=== PATIENT | female | born 1950 | race Caucasian/White ===

== ENCOUNTER 2024-05-19 16:53 | Emergency (ER) | payer OTHER, SELFPAY ==
[2024-05-19 16:57] VITALS: BP 165/100
--- NOTE | 2024-05-19 18:16 | EDRN ---
Patient came to [facility] c/o headache stating when she fell she hit the left side of her head. visible bump. patient encouraged to get ct head but patient refused at this time.
[2024-05-19] MEDS: TORADOL 30 MG IM (19:35)
--- NOTE | 2024-05-19 20:39 | ED.GENMED ---
History of Present Illness
General
Chief Complaint: Musculo-Skeletal Complaint
Source: patient
Exam Limitations: none
Time Seen by Provider: 05/19/24 18:36
Nursing documentation reviewed up to this point in time: agreed with
History of Present Illness
History of Present Illness:
74-year-old female slipping on ice injuring her left wrist. Had outpatient x-ray showing fracture was sent to the ER for assessment. Denies additional trauma no head trauma no loss of consciousness not on blood thinners.
Past History
Past History
ED Past Medical History: Psychiatric
Social History
Tobacco: Smoker
Personal:
Review of Systems
Review of Systems
Allergies reviewed?: Yes
All Other Systems: ROS reviewed and negative except as documented in HPI and ROS
Phy Exam
Physical Exam
Physical Exam:
GENERAL: Alert , in no apparent distress
EYE: pupils equal and reactive
NECK: Supple, no significant adenopathy.
ENT: o/p clr, mmm.
CARDIAC: Regular rate and rhythm .
LUNGS: Clear breath sounds bilaterally, no acute respiratory distress, no wheezes/rales/rhonchi
ABDOMEN: Soft, without focal tenderness, no r/g, no cvat
NEUROLOGICAL: Alert and oriented, no focal neuro deficits
SKIN: Warm and dry, skin intact.
MUSCULOSKELETAL: Deformed left wrist swelling tenderness palpation able to move all fingers normal pulses radial and ulnar normal cap refill distally no edema, well perfused.
PSYCH: Normal and appropriate interaction.
Course
Orders/Labs/Results
Orders:
Orders
05/19/24 19:27
Ketorolac [Toradol] 30 mg IM NOW STA
05/19/24 20:34
CR Wrist - Left Min 2 Views Urgent
Reason For Exam: wrist post reduction
Vital Signs
Initial and Last Documented VS:
Initial Vital Signs
Temp Pulse Resp BP Pulse Ox
98.3 F 97 16 165/100 98
05/19/24 16:57 05/19/24 16:57 05/19/24 16:57 05/19/24 16:57 05/19/24 16:57
Last Documented Vital Signs
Temp Pulse Resp BP Pulse Ox
98.3 F 97 16 165/100 98
05/19/24 16:57 05/19/24 16:57 05/19/24 16:57 05/19/24 16:57 05/19/24 16:57
Procedures
Splinting/Sling Placement
Left Wrist:
Procedure completed by: Myself
Pre-splint extermity exam: neurovascular intact
Type of splint: sugar-tong
Splint material: fiberglass
Splint checked by provider?: Yes
Type of sling: sling fitted
Normal distal neurovascular exam?: Yes
Joint/Fracture Reduction
Left Dorsal Wrist:
Indication for procedure:: Distal radius fracture
Procedure completed by: Myself
Consent form signed: No
If no, reason: Emergency procedure (Verbal consent obtained)
Joint reduced: no treatment at this time (Hematoma block was performed)
Anesthesia/sedation: 1% Lidocaine and Injection to joint space
Injury was: closed
Further treatement: needs further treatment
Post reduction exam: stable
Capillary Refill: normal
Normal distal neurovascular exam?: Yes
Peripheral Pulses: radial (left): 2+
MDM/Problems Addressed
MDM/Problems Addressed:
74-year-old female presenting to the emergency department today with concerns of left-sided wrist deformity after slipping on ice prior to arrival. But have a fracture on x-ray. Fracture to the distal radius hematoma block was performed and
reduction was attempted. Patient was splinted. Otherwise patient will follow-up with orthopedics return precautions given.
*Critical Care Note
Total Time (30-74mins, 75-104mins- exclusive of procedures): Not Applicable
ED Attending Note
-
Portions of this chart may have been created with voice recognition software.� Occasional wrong word or��sound alike� substitutions may have occurred due to the inherent limitations of voice recognition software.
Discharge Plan
Departure
Patient Disposition: Home (Routine Discharge)
Date of Disposition: 05/19/24
Time of Disposition: 21:44
Patient with high blood pressure during this ER visit?: No
Condition: Good
Covid-19: Not Applicable
Discharge Problem:
Fracture of wrist
Instructions: Wrist Fracture (DC)
Prescriptions:
No Action
alprazolam 0.25 MG tablet
0.25 mg PO Q6HPRN PRN (Reason: anxiety)
citalopram 10 MG tablet
10 mg PO DAILY
calcium carbonate-vitamin D3 [Oyster Shell Calcium-Vit D3] 500 MG tablet
1 tab PO DAILY
amoxicillin 500 MG capsule
500 mg PO TID Qty: 30 0RF
tramadol 50 MG tablet
50 mg PO Q6H PRN (Reason: pain) Qty: 20 0RF
ondansetron [Zofran ODT] 8 MG tablet,disintegrating
8 mg PO TID PRN (Reason: nausea/vomiting) Qty: 20 0RF
amoxicillin 500 MG capsule
500 mg PO TID Qty: 42 0RF
Referrals:
Jose Tavarez MD [Family Provider] -
Milton Stone MD [Active] - Follow up in 5-7 days
Activity Restrictions/Additional Instructions:
You came to the emergency department today with concerns of wrist injury. You were splinted. Please leave this in place until orthopedic follow-up. Return for any worsening, new or concerning symptoms.
Interventions
Interventions:
*Risk Screen - Suicide Last Done: 05/19/24 16:57
*General Assessment Last Done: 05/19/24 16:57
*Neglect/Abuse Screening Last Done: 05/19/24 16:57
*ED COVID-19 Vaccine History Last Done: 05/19/24 16:57
ED-Musculoskeletal Assessment Last Done: 05/19/24 19:47
Discharge Date and Time
Print Language: PORTUGUESE
[2024-05-19 22:04] VITALS: BP 155/94
== END 2024-05-19 22:05 | disposition home or self-care (01) ==
LOC: EMR 16:53
PROVIDERS: EMERGENCY PHYSICIAN Student in an Organized Health Care Education/Training Program; FAMILY PHYSICIAN Family Medicine
DX: S52.592A Other fractures of lower end of left radius, initial encounter for closed fracture (principal); S52.692A Other fracture of lower end of left ulna, initial encounter for closed fracture; W00.0XXA Fall on same level due to ice and snow, initial encounter; F17.200 Nicotine dependence, unspecified, uncomplicated
CPT/HCPCS: 25605; 99284; 96372; 73090; 73100; 73110

== ENCOUNTER → 2024-05-25 13:14 | Outpatient (REF) | payer OTHER, SELFPAY ==
[2024-05-25 14:45] LABS: % Basophils 0.7 % (0-2); % Eosinophils 2.3 % (0-6); % Immature Granulocytes 0.2 % (0-0.5); % Lymphocytes 31.7 % (20.5-51.1); % Monocytes 7.4 % (1.7-9.3); % Neutrophils 57.7 % (42.2-75.2); Absolute Basophils 0.1 10^3/uL (0-0.2); Absolute Eosinophils 0.2 10^3/uL (0-0.7); Absolute Lymphocytes 3.1 10^3/uL (1.2-3.4); Absolute Monocytes 0.7 10^3/uL (0.1-0.6); Absolute Neutrophils 5.7 10^3/uL (1.4-6.5); Hematocrit 41.5 % (37.0-47.0); Hemoglobin 13.8 g/dL (12.0-16.0); Mean Corp Hgb Conc. 33.3 g/dL (33.0-37.0); Mean Corpuscular Hgb 29.9 pg (27.0-31.0); Mean Corpuscular Volume 89.8 fL (81.0-99.0); Nucleated Red Blood Cells % 0 %; Platelet Count 301 10^3/uL (130-400); Red Blood Cell Count 4.62 10^6/uL (4.20-5.40); White Blood Cell Count 9.8 10^3/uL (4.8-10.8)
[2024-05-25 15:08] LABS: Blood Urea Nitrogen 12 mg/dl (7-17); Calcium 9.7 mg/dl (8.4-10.2); Carbon Dioxide 29 mmol/L (22-30); Chloride 99 mmol/L (98-107); Glucose 97 mg/dl (70-99); Sodium 137 mmol/L (135-145); eGFR > 60.00
== END ==
LOC: RCS 13:14
PROVIDERS: ATTENDING PHYSICIAN Orthopaedic Surgery; FAMILY PHYSICIAN Family Medicine
DX: S52.502A Unspecified fracture of the lower end of left radius, initial encounter for closed fracture (principal)
CPT/HCPCS: 36415; 80048; 85025; 93005

== ENCOUNTER 2024-06-29 11:53 | Outpatient (RCR) | payer OTHER, SELFPAY | END 2024-06-29 23:59 | disposition home or self-care (01) | LOC: ROT 11:53 | PROVIDERS: ATTENDING PHYSICIAN Orthopaedic Surgery; FAMILY PHYSICIAN Family Medicine | DX: Z47.89 Encounter for other orthopedic aftercare (principal); M25.532 Pain in left wrist; Z73.6 Limitation of activities due to disability; W00.0XXD Fall on same level due to ice and snow, subsequent encounter | CPT/HCPCS: 97010; 97022; 97110; 97140; 97166; 97535 ==

== ENCOUNTER 2024-07-08 11:32 | Outpatient (RCR) | payer OTHER, SELFPAY | END 2024-07-08 23:59 | disposition home or self-care (01) | LOC: ROT 11:32 | PROVIDERS: ATTENDING PHYSICIAN Orthopaedic Surgery; FAMILY PHYSICIAN Family Medicine | DX: Z47.89 Encounter for other orthopedic aftercare (principal); M25.532 Pain in left wrist; Z73.6 Limitation of activities due to disability; W00.0XXD Fall on same level due to ice and snow, subsequent encounter; S52.502D Unspecified fracture of the lower end of left radius, subsequent encounter for closed fracture with routine healing; S52.602D Unspecified fracture of lower end of left ulna, subsequent encounter for closed fracture with routine healing | CPT/HCPCS: 97022; 97110; 97140 ==

== ENCOUNTER → 2024-12-21 11:59 | Outpatient (REF) | payer OTHER, SELFPAY | LOC: HWRAD 11:59 | PROVIDERS: ATTENDING PHYSICIAN Family Medicine | DX: R10.31 Right lower quadrant pain (principal) | CPT/HCPCS: 73502 ==

== ENCOUNTER → 2025-01-04 12:25 | Outpatient (REF) | payer OTHER, SELFPAY | LOC: HWWDC 12:25 | PROVIDERS: ATTENDING PHYSICIAN Family Medicine | DX: M81.0 Age-related osteoporosis without current pathological fracture (principal); Z12.31 Encounter for screening mammogram for malignant neoplasm of breast | CPT/HCPCS: 77063; 77067; 77080 ==

== ENCOUNTER → 2025-01-17 08:58 | Outpatient (REF) | payer OTHER, SELFPAY | LOC: MRI 3T 08:58 | PROVIDERS: ATTENDING PHYSICIAN Physical Medicine & Rehabilitation Sports Medicine; FAMILY PHYSICIAN Family Medicine | DX: M25.551 Pain in right hip (principal) | CPT/HCPCS: 73721 ==